=== PATIENT | female | born 1980 | race African-American/Black ===

== ENCOUNTER 2024-07-30 07:54 | Emergency (ER) | payer OTHER ==
[~2024-07-30] VITALS: Ht 157.5 cm; Wt 139.2 kg
[2024-07-30] MEDS ORDERED: TETRACAINE HCL 0.5% 4 ML BTL OD ONE (09:00)
[2024-07-30 09:46] VITALS: BP 157/106
== END 2024-07-30 09:46 | disposition home or self-care (01) ==
LOC: ED 07:54
DX: H57.11 Ocular pain, right eye (principal)
CPT/HCPCS: 99282

== ENCOUNTER 2025-03-09 07:46 | Emergency (ER) | payer OTHER ==
[~2025-03-09] VITALS: Ht 157.5 cm; Wt 135.9 kg
[2025-03-09] MEDS ORDERED: MAGNESIUM CITRATE 300 ML BTL PO ONE (08:15)
[2025-03-09] MEDS ORDERED: METFORMIN HCL500 M1 PO (08:18)
[2025-03-09] MEDS ORDERED: POTASSIUM CHLO10 ME1 PO (08:18)
[2025-03-09] MEDS ORDERED: CITALOPRAM HBR20 MG PO (08:18)
[2025-03-09] MEDS ORDERED: HYDROCHLOROTH12.5 M1 PO (08:18)
[2025-03-09 08:30] VITALS: BP 121/85
== END 2025-03-09 08:30 | disposition home or self-care (01) ==
LOC: ED 07:46
DX: K59.00 Constipation, unspecified (principal)
CPT/HCPCS: 99283